=== PATIENT | male | born 2000 | race Two or more races ===

== ENCOUNTER 2020-06-04 18:36 | Emergency (ER) | payer BC ==
[~2020-06-04] VITALS: Ht 172.7 cm; Wt 85.0 kg
[2020-06-04 18:38] VITALS: BP 146/90
--- NOTE | 2020-06-04 19:13 | NUR ---
FB removed. Pt with no pain or complaints. Pt dc'd with written and verbal instructions. Pt ambulatory out of ED without difficulty.
== END 2020-06-04 19:16 ==
LOC: ED 19:00
DX: T16.2XXA Foreign body in left ear, initial encounter (principal); X58.XXXA Exposure to other specified factors, initial encounter; Y93.89 Activity, other specified; Y92.89 Other specified places as the place of occurrence of the external cause; Y99.8 Other external cause status
CPT/HCPCS: 69200; 99284